=== PATIENT | male | born 1990 | race Caucasian/White ===

== ENCOUNTER 2021-04-09 16:16 | Emergency (ER) | payer OTHER, SELFPAY ==
--- NOTE | ~2021-04-09 | XR_ITS ---
EXAMINATION: XR CHEST CLINICAL INFORMATION: Productive cough COMPARISON: None TECHNIQUE: 2 views of the chest were obtained. FINDINGS: No significant abnormality is noted involving the heart, lungs, mediastinum, bony thorax or soft tissues. XR/XR chest 2V IMPRESSION: Unremarkable examination.
[2021-04-09 17:22] VITALS: BP 126/84; PULSE 94; RESP 18; TEMP 37.1; O2SAT 100; BMI 29.7
[2021-04-09 20:07] VITALS: BP 141/73; PULSE 80; RESP 18; O2SAT 99
[2021-04-09 20:18] LABS: MANUAL DIFF FLAG NO
[2021-04-09 20:20] LABS: Basophils Percent Auto 0.2 % (0-2); Eosinophils Absolute Auto 0.3 X10*3/uL (0.0-0.4); Hematocrit 41.7 % (42-52); Hemoglobin 14.2 g/dl (14.0-18.0); Imm Gran Abs Auto 0.04 X10*3/uL (0.00-0.03); Imm Gran Pct Auto 0.3 % (0.0-0.4); Lymphocytes Absolute Auto 1.8 X10*3/uL (1.2-4.9); Lymphocytes Percent Auto 13.4 % (20-40); Mean Corpuscular HGB Conc 34.1 g/dl (31.0-36.0); Mean Corpuscular Hemoglobin 28.8 pg (27.0-33.0); Mean Corpuscular Volume 84.6 fL (80-98); Mean Platelet Volume 9.8 fL (9.4-12.4); Monocytes Percent Auto 7.3 % (2-11); Neutrophils Absolute Auto 10.1 X10*3/uL (2.0-8.3); Neutrophils Percent Auto 76.8 % (45-73); Platelet Count 225 X10*3/uL (160-400); Red Blood Count 4.93 X10*6/uL (4.60-5.80); Red Cell Distribution Width 13.2 % (11.0-16.0); White Blood Count 13.2 X10*3/uL (4.8-10.8)
[2021-04-09 20:49] LABS: Anion Gap 12 (12-20); Calcium 9.5 mg/dL (8.4-10.2); Carbon Dioxide 31 mmol/L (22-29); Chloride 99 mmol/L (96-108); Creatinine Clr Calc Pharmacy 123.3; Estimated Glomerular Filt Rate > 60; Glucose Random 97 mg/dL (60-115); Potassium 4.9 mmol/L (3.3-5.1); Sodium 137 mmol/L (135-145)
[2021-04-09 20:51] LABS: Blood Urea Nitrogen 5 mg/dL (9-16)
--- NOTE | 2021-04-09 20:52 | ED.URI ---
HPI - URI/Sore Throat General Chief Complaint: Upper Respiratory Symptoms Stated Complaint: Chest pain, synis pressure Time Seen by Provider: 04/09/21 20:52 Source: patient Mode of arrival: ambulatory Limitations: no limitations History of Present Illness HPI Narrative: Patient is a 30-year-old male no significant past medical history use complaining of 2 days of productive cough and aching joints which is getting worse. Patient states the cough is keeping him up at night. Patient denies fevers nausea vomiting or diarrhea. Patient denies chest pain or shortness of breath. Patient denies a history of asthma or allergies Related Data Allergies Allergy/AdvReac Type Severity Reaction Status Date / Time No Known Allergies Allergy Verified 04/09/21 17:24 Review of Systems Review of Systems: Yes all other systems are reviewed and are negative [facility] Past Medical History Medical History No known health problems Social History Social History Advance Directives: No Advance Directives Information Provided: Yes Physical Exam Vital Signs: Vital Signs: Last Vital Signs Temp 98.7 F 04/09/21 17:22 Pulse 80 04/09/21 20:07 Resp 18 04/09/21 20:07 BP 141/73 H 04/09/21 20:07 Pulse Ox 99 04/09/21 20:07 Body Mass Index 29.7 Const: General: cooperative, healthy appearing, comfortable and no acute distress Nutritional Appearance: average body habitus Orientation/consciousness: patient oriented x3 HENMT: Head: Yes normal to inspection, Yes No palpable skull fracture present, Yes normocephalic and Yes atraumatic Face and sinus: Yes sinus tenderness (Frontal) Eyes: General: appearance normal, both eyes and all related structures Neck: Neck: Yes normal visual inspection and Yes full ROM Resp: Effort & Inspection: normal respiratory effort and able to speak in complete sentences Auscultation: wheezes expiratory wheezes and throughout Cardio: Rate: regular rate Rhythm: regular rhythm Heart sounds: normal S1 and S2 Skin: General skin exam: no rashes or lesions noted Neuro: General: patient oriented x3 Extrem: General: Yes normal to inspection Course Course Course Narrative: Patient is a 30-year-old male no significant past medical history use complaining of 2 days of productive cough and aching joints which is getting worse. VSS. Physical exam remarkable for diffuse expiratory wheezes. Labs remarkable for WBC 13.2, BMP WNL, covid/flu/rsv pending. Will order ventolin inhaler and discharge pt, will call if any of pending tests are positive. MDM - URI/Sore Throat Lab Data Attestation: I reviewed the patient's lab results. Result diagrams: 04/09/21 20:14 04/09/21 20:14 Labs: Lab Results 04/09/21 04/09/21 Range/Units 20:14 20:14 WBC 13.2 H (4.8-10.8) X10*3/uL RBC 4.93 (4.60-5.80) X10*6/uL Hgb 14.2 (14.0-18.0) g/dl Hct 41.7 L (42-52) % MCV 84.6 (80-98) fL MCH 28.8 (27.0-33.0) pg MCHC 34.1 (31.0-36.0) g/dl RDW 13.2 (11.0-16.0) % Plt Count 225 (160-400) X10*3/uL MPV 9.8 (9.4-12.4) fL Immature Gran % (Auto) 0.3 (0.0-0.4) % Neut % (Auto) 76.8 H (45-73) % Lymph % (Auto) 13.4 L (20-40) % Armstrong % (Auto) 7.3 (2-11) % Eos % (Auto) 2.0 (0-4) % Baso % (Auto) 0.2 (0-2) % Lymph # (Auto) 1.8 (1.2-4.9) X10*3/uL Armstrong # (Auto) 1.0 (0.1-1.2) X10*3/uL Eos # (Auto) 0.3 (0.0-0.4) X10*3/uL Baso # (Auto) 0.0 (0.0-0.2) X10*3/uL Abs Immat Gran (auto) 0.04 H (0.00-0.03) X10*3/uL Absolute Neuts (auto) 10.1 H (2.0-8.3) X10*3/uL Absolute Nucleated RBC 0.000 (0.0-0.012) X10*3/uL Nucleated RBC % (auto) 0.0 (0.0-0.2) /100WBC Sodium 137 (135-145) mmol/L Potassium 4.9 (3.3-5.1) mmol/L Chloride 99 (96-108) mmol/L Carbon Dioxide 31 H (22-29) mmol/L Anion Gap 12 (12-20) BUN 5 L (9-16) mg/dL Creatinine 0.91 (0.5-1.4) mg/dL Estim Creat Clear Calc 123.3 Estimated GFR > 60 Random Glucose 97 (60-115) mg/dL Calcium 9.5 (8.4-10.2) mg/dL Imaging Data Chest x-ray: Attestation: I personally reviewed and interpreted this imaging study as follows: Radiologist's impression: [address] [id number] ReportSigned Patient: Vitor Vaca RMR#: [id number]: [id number]:[id number]/Sex: 30 MADM Date: 04/09/21Loc: [address] Dr: Ordering Physician: Generic ED Physician Date of Service: 04/09/21 Procedure(s): XR chest 2V Accession Number(s): [id number] cc: Generic ED Physician~ EXAMINATION: XR CHEST CLINICAL INFORMATION: Productive cough COMPARISON: None TECHNIQUE: 2 views of the chest were obtained. FINDINGS: No significant abnormality is noted involving the heart, lungs, mediastinum, bony thorax or soft tissues. XR/XR chest 2V IMPRESSION: Unremarkable examination. Dictated By:RAFAEL BOSWELL MDSigned By:<Electronically signed by RAFAEL BOSWELL MD in [place]>04/09/21 180 DD/ 1733TD/TT: [employer] Machine Operator: [email or web address]
[2021-04-09] MEDS: Albuterol Sulfate 90 MCG 8 GM INHALER 2 PUFF INHALE (22:08)
[2021-04-09] MEDS: guaiFENesin DM 100/10/5 ML 5 ML SYRUP 10 ML PO (22:09)
[2021-04-09 22:10] VITALS: BP 121/81; PULSE 96; RESP 18; O2SAT 97
[2021-04-10 03:52] LABS: Influenza A PCR NEGATIVE (Negative); Influenza B PCR NEGATIVE (Negative); Resp Syncy Virus RNA Qual PCR NEGATIVE (Negative); SARS COV2 PCR INHOUSE NEGATIVE (Negative)
== END 2021-04-09 22:17 | disposition home or self-care (01) ==
PROVIDERS: Physician Assistant; Emergency Provider Emergency Medicine
DX: R05 Cough (principal); M25.50 Pain in unspecified joint; Z20.822 Contact with and (suspected) exposure to COVID-19
CPT/HCPCS: 0241U; 36415; 71046; 80048; 85025; 99283; 99284